=== PATIENT | female | born 1995 | race Caucasian/White ===

== ENCOUNTER 2016-07-29 13:32 | Emergency (ER) | payer BC ==
--- NOTE | 2016-07-29 16:45 | ED ---
Female Urogenital HPI - General Chief complaint: Vaginal Bleeding Stated complaint: 8 weeks bleeding Source: patient, RN notes reviewed Mode of arrival: ambulatory Limitations: no limitations - History of Present Illness Initial comments: 21-year-old female presents emergency Department requesting that her hCG level be checked. Patient states that she is approximately 8 weeks and states that she's been having her hCG level monitored because she's been having some spotting. She states spotting only happens after intercourse. She was advised not to though she did again. Patient states she did receive RhoGAM 3 days ago. Patient states this is her first . Patient states her OB/ [employer] is in [place] oriented. Patient states there is just a small spot of blood. She has no abdominal pain no abdominal cramping. Denies fever, chills, nausea vomiting. - Related Data Home Medications Medication Instructions Recorded Confirmed Pnv with Ca,No.72/Iron/FA 1 tab PO DAILY 07/29/16 07/29/16 [ Plus Tablet] Allergies Allergy/AdvReac Type Severity Reaction Status Date / Time No Known Allergies Allergy Verified 07/29/16 15:26 Review of Systems ROS Statement: Those systems with pertinent positive or pertinent negative responses have been documented in the HPI. ROS Other: All systems not noted in ROS Statement are negative. Past Medical History Past Medical History: No Reported History History of Any Multi-Drug Resistant Organisms: None Reported Past Surgical History: No Surgical Hx Reported Past Psychological History: No Psychological Hx Reported Smoking Status: Never smoker Past Alcohol Use History: None Reported Past Drug Use History: None Reported General Exam General appearance: alert, in no apparent distress Head exam: Present: atraumatic, normocephalic, normal inspection Respiratory exam: Present: normal lung sounds bilaterally. Absent: respiratory distress, wheezes, rales, rhonchi, stridor Cardiovascular Exam: Present: regular rate, normal rhythm, normal heart sounds. Absent: systolic murmur, diastolic murmur, rubs, gallop, clicks GI/Abdominal exam: Present: soft, normal bowel sounds. Absent: distended, tenderness, guarding, rebound, rigid Back exam: Absent: CVA tenderness (R), CVA tenderness (L) Skin exam: Present: warm, dry, intact, normal color. Absent: rash Course Vital Signs 07/29/16 14:21 Temperature 99.5 F Pulse Rate 97 Respiratory 18 Rate Blood Pressure 130/70 O2 Sat by Pulse 97 Oximetry Medical Decision Making - Medical Decision Making 21-year-old female presented for HCG level. Patient's hCG level is pending. Patient will is requesting to be discharged at this time and updated later. Disposition Clinical Impression: Disposition: HOME SELF-CARE Condition: Stable Instructions: (ED) Additional Instructions: Please return to the Emergency Department if symptoms worsen or any other concerns. No sexual activity Time of Disposition: 17:20
[2016-07-29 17:38] VITALS: BP 128/66; PULSE 96; RESP 16; TEMP 99
== END 2016-07-29 17:37 | disposition home or self-care (01) ==
LOC: EC 13:32
DX: O20.9 Hemorrhage in early pregnancy, unspecified (principal); Z3A.08 8 weeks gestation of pregnancy
CPT/HCPCS: 36415; 84702; 99284